=== PATIENT | female | born 1960 | race Caucasian/White ===

== ENCOUNTER → 2020-04-10 10:10 | Outpatient (BNVA) | payer OTHER, SELFPAY | PROVIDERS: PCP Family Medicine; Visit Provider Hospitalist | DX: Z76.89 Persons encountering health services in other specified circumstances (principal) ==

== ENCOUNTER 2021-03-13 14:45 | Outpatient (REF) | payer OTHER, SELFPAY ==
[2021-03-13 16:09] LABS: MANUAL DIFF FLAG NO
[2021-03-13 16:24] LABS: Basophils Percent Auto 0.3 % (0-2); Eosinophils Percent Auto 0.1 % (0-4); Imm Gran Abs Auto 0.21 X10*3/uL (0.00-0.03); Imm Gran Pct Auto 1.6 % (0.0-0.4); Lymphocytes Absolute Auto 4.6 X10*3/uL (1.2-4.9); Lymphocytes Percent Auto 34.7 % (20-40); Mean Corpuscular Hemoglobin 20.5 pg (27.0-33.0); Mean Corpuscular Volume 70.5 fL (80.0-98.0); Mean Platelet Volume 8.7 fL (9.4-12.3); Monocytes Absolute Auto 0.9 X10*3/uL (0.1-1.2); Monocytes Percent Auto 6.4 % (2-11); NRBC Pct Auto 0.5 /100WBC (0.0-0.2); Neutrophils Absolute Auto 7.6 x10*3/uL (2.0-8.3); Neutrophils Percent Auto 56.9 % (45-73); Platelet Count 311 X10*3/uL (160-400); Red Cell Distribution Width 21.5 % (11.0-16.0); White Blood Count 13.3 X10*3/uL (4.8-10.8)
[2021-03-13 16:47] LABS: Anion Gap 13 (12-20); Blood Urea Nitrogen 22 mg/dL (9-16); Calcium 8.9 mg/dL (8.4-10.2); Carbon Dioxide 22 mmol/L (22-29); Chloride 107 mmol/L (96-108); Estimated Glomerular Filt Rate > 60; Glucose Random 93 mg/dL (60-115); Potassium 4.4 mmol/L (3.3-5.1); Sodium 138 mmol/L (135-145)
[2021-03-13 17:18] LABS: Erythrocyte Sedimentation Rate 5 MM/HR (0-20)
[2021-03-14 13:51] LABS: SARS-COV-2 IgG Spike, Semi-Qnt <1.00 index (<1.00)
[2021-03-14 22:51] LABS: Immunoglobulin E 4 kU/L (<OR=114)
[2021-03-18 22:22] LABS: Immunoglobulin G Subclass 1 304 mg/dL (382-929); Immunoglobulin G Subclass 2 98 mg/dL (241-700); Immunoglobulin G Subclass 3 32 mg/dL (22-178); Immunoglobulin G Subclass 4 2.6 mg/dL (4-86); Immunoglobulin G Total 491 mg/dL (600-1540)
== END 2021-03-13 14:46 | disposition home or self-care (01) ==
LOC: HO.LAB 14:45
PROVIDERS: PCP Family Medicine; Visit Provider Hospitalist
DX: J44.9 Chronic obstructive pulmonary disease, unspecified (principal); J45.50 Severe persistent asthma, uncomplicated; J96.10 Chronic respiratory failure, unspecified whether with hypoxia or hypercapnia; D80.1 Nonfamilial hypogammaglobulinemia; H05.20 Unspecified exophthalmos; K75.4 Autoimmune hepatitis; I82.409 Acute embolism and thrombosis of unspecified deep veins of unspecified lower extremity; Z99.81 Dependence on supplemental oxygen; Z79.52 Long term (current) use of systemic steroids
CPT/HCPCS: 36415; 80048; 82784; 82785; 85025; 85652; 86769

== ENCOUNTER → 2021-07-25 15:12 | Outpatient (BNVA) | payer OTHER, SELFPAY | PROVIDERS: PCP Family Medicine; Visit Provider Hospitalist | DX: Z13.89 Encounter for screening for other disorder (principal) ==

== ENCOUNTER 2021-11-18 15:29 | Outpatient (REF) | payer OTHER, SELFPAY ==
--- NOTE | 2021-11-18 17:42 | PFT_ITS ---
FLOWS: FEV1 113% of predicted at 2.46 L. FVC 97% of predicted at 2.76 L. FEV1 to FVC ratio of 0.89. No bronchodilator response except in small to medium airways. LUNG VOLUMES: Total lung capacity 94% of predicted at 4.33 L. Residual volume 83% of predicted at 1.59 L. Slow vital capacity 109% of predicted at 2.74 L. Expiratory reserve volume 28% of predicted at 0.20 L. Diffusion capacity is moderately decreased. IMPRESSION: No obstructive or restrictive ventilatory defect. Decreased expiratory reserve volume suggests extrathoracic restriction likely secondary to abdominal obesity. Decreased diffusion capacity without prior history of smoking suggests underlying pulmonary parenchymal disease or pulmonary edema. Clinical correlation is advised. MD BIGG Rojas/MODL / [id number]
== END 2021-11-18 15:30 | disposition home or self-care (01) ==
LOC: HO.RESP 15:29
PROVIDERS: PCP Family Medicine; Visit Provider Hospitalist
DX: J45.50 Severe persistent asthma, uncomplicated (principal)
CPT/HCPCS: 94060; 94727; 94729

== ENCOUNTER 2021-12-03 16:27 | Outpatient (REF) | payer OTHER, SELFPAY ==
[2021-12-03 16:42] LABS: MANUAL DIFF FLAG NO
[2021-12-03 16:46] LABS: Basophils Absolute Auto 0.1 X10*3/uL (0.0-0.2); Basophils Percent Auto 0.4 % (0-2); Eosinophils Percent Auto 0.1 % (0-4); Hematocrit 31.7 % (37.0-47.0); Hemoglobin 9.7 g/dl (12.0-16.0); Imm Gran Abs Auto 0.35 X10*3/uL (0.00-0.03); Imm Gran Pct Auto 2.5 % (0.0-0.4); Lymphocytes Absolute Auto 4.4 X10*3/uL (1.2-4.9); Mean Corpuscular HGB Conc 30.6 g/dl (31.0-35.0); Mean Corpuscular Hemoglobin 22.7 pg (27.0-33.0); Mean Corpuscular Volume 74.2 fL (80.0-98.0); Mean Platelet Volume 8.5 fL (9.4-12.3); Monocytes Absolute Auto 1.1 X10*3/uL (0.1-1.2); Monocytes Percent Auto 7.8 % (2-11); NRBC Pct Auto 0.3 /100WBC (0.0-0.2); Neutrophils Absolute Auto 8.2 x10*3/uL (2.0-8.3); Neutrophils Percent Auto 58.2 % (45-73); Platelet Count 295 X10*3/uL (160-400); Red Blood Count 4.27 X10*6/uL (4.20-5.50); White Blood Count 14.1 X10*3/uL (4.8-10.8)
[2021-12-03 16:59] LABS: Alanine Aminotransferase 22 U/L (0-31); Albumin Level 4.2 g/dL (3.5-5.0); Alkaline Phosphatase 38 U/L (39-117); Anion Gap 16 (12-20); Aspartate Amino Transferase 15 U/L (5-31); Bilirubin Direct 0.2 mg/dL (0.0-0.5); Bilirubin Total 0.4 mg/dL (0.0-1.0); Blood Urea Nitrogen 31 mg/dL (9-16); Calcium 9.5 mg/dL (8.4-10.2); Carbon Dioxide 20 mmol/L (22-29); Chloride 106 mmol/L (96-108); Estimated Glomerular Filt Rate 51; Glucose Random 101 mg/dL (60-115); Sodium 137 mmol/L (135-145); Total Protein 6.6 g/dL (6.5-8.0)
[2021-12-03 17:23] LABS: Erythrocyte Sedimentation Rate 12 MM/HR (0-20)
[2021-12-04 13:37] LABS: SARS-COV-2 IgG Spike, Semi-Qnt 49.77 index (<1.00)
[2021-12-04 14:56] LABS: Immunoglobulin G Subclass 1 308 mg/dL (382-929); Immunoglobulin G Subclass 2 97 mg/dL (241-700); Immunoglobulin G Subclass 3 45 mg/dL (22-178); Immunoglobulin G Total 447 mg/dL (600-1540)
[2021-12-04 18:56] LABS: Immunoglobulin E 4 kU/L (<OR=114)
== END 2021-12-03 16:28 | disposition home or self-care (01) ==
LOC: HO.LAB 16:27
PROVIDERS: Visit Provider Hospitalist
DX: Z20.822 Contact with and (suspected) exposure to COVID-19 (principal); U09.9 Post COVID-19 condition, unspecified; D80.1 Nonfamilial hypogammaglobulinemia; J45.909 Unspecified asthma, uncomplicated; J96.10 Chronic respiratory failure, unspecified whether with hypoxia or hypercapnia
CPT/HCPCS: 36415; 80048; 80076; 82784; 82785; 85025; 85652; 86769

== ENCOUNTER → 2022-06-09 15:12 | Outpatient (BNVA) | payer OTHER, SELFPAY | PROVIDERS: PCP Family Medicine; Visit Provider Hospitalist | DX: J45.909 Unspecified asthma, uncomplicated (principal); J44.9 Chronic obstructive pulmonary disease, unspecified; D80.1 Nonfamilial hypogammaglobulinemia; J96.10 Chronic respiratory failure, unspecified whether with hypoxia or hypercapnia; U09.9 Post COVID-19 condition, unspecified ==

== ENCOUNTER 2023-09-03 14:41 | Outpatient (AMB) | payer OTHER, SELFPAY ==
--- NOTE | 2023-09-03 14:45 | A.OFFVIS_ITS ---
Vital Signs 09/03/23 14:47 Height 5 ft 1 in Weight 162 lb BMI 30.6 Pulse 69 Pulse Source Pulse Oximeter Pulse Oximetry (%) 96 Oxygen Delivery Method Room Air Intake Visit Reasons: COPD Pantograph Watcher Required: No Allergies azithromycin [AZITHROMYCIN] Allergy (Severe, Verified 09/03/23 14:48) N/V Cephalosporins [CEPHALOSPORINS] Allergy (Severe, Verified 09/03/23 14:48) N/V [place] And Derivatives [CITRUS] Allergy (Severe, Verified 09/03/23 14:48) GI DISSTRESS codeine [CODEINE] Allergy (Severe, Verified 09/03/23 14:48) N/V furosemide [From LASIX] Allergy (Severe, Verified 09/03/23 14:48) RESP DISTRESS lactulose [LACTULOSE] Allergy (Severe, Verified 09/03/23 14:48) GI DISTRESS Penicillins [PCN] Allergy (Severe, Verified 09/03/23 14:48) N/V topiramate [From TOPAMAX] Allergy (Severe, Verified 09/03/23 14:48) CONFUSION HPI Comments Details: The atient is a 63-year-old woman with known severe persistent asthma and significant air trapping, hypogammaglobulinemia and known autoimmune hepatitis. Her course was complicated by vertebral compression fractures resulting in cauda equina syndrome not using a walker.2This was likely precipitated by the chronic use of steroids. More recently however the patient developed worsening altered mental status with significant encephalopathy. She was also having fevers up to 102. She did undergo evaluation for meningitis which was or unremarkable except for elevated CSF protein. She also had an EEG that was found to be abnormal. Currently she she has been treated for seizures. In the meantime respiratory status is better. She has decreased the amount of medication she is taking. We did review her chest x-ray from [facility] when she was admitted demonstrating decreased lung volumes with some airspace disease. Therefore, the patient should have a repeat x-ray at this time. She has not been receiving her IgG infusions since December. At this point the patient is concerned with all the other medical issues that she is having. Her last IgE level total was okay. Although her subclass 2 was slightly decreased. She continues on the prednisone 20 mg a day and she is tolerating that well. She continues the albuterol and overall has been able to simplify her respiratory regimen. 06/23/2019. The patient is here for pulmonary follow-up visit. She has not recovering from a recurrent respiratory infection. She has had multiple respiratory infections since we last spoke. She continues on the prednisone 20 mg daily. Her liver has been stable. In the meantime we did recheck her IgG levels and it appears that she has worsening hypogammaglobulinemia with a total IgG of 561 and a significantly low subclass 2 of 116. The patient had been on IVIG infusions in there very effective for. At this time in view of the worsenin g IgG levels in the recurrent infections and her ongoing autoimmune disease the patient will be restarted on IVIG infusions. 11/26/2019 the patient is here for pulmonary follow-up visit. Overall she is doing fairly well from a respiratory status. She has not really needing nebulized therapy any longer. She rarely uses her rescue inhaler which is reassuring. She continues on the prednisone 10 mg twice a day. In addition to that she continues with the infusions that appear to be very effective beneficial for her. She is getting this monthly. She is having significant back issues and also now hip issues. She was evaluated by [facility] at [facility] demonstrating significant arthritis of her right hip. It appears that she is going to need a total hip replacement. She was also diagnosed with seizures. She was evaluated for this. It was felt that it was likely related to hypoxia which could have been due to underlying obstructive sleep apnea. In view of her elevated [place] score of 12/24, history of seizures and significant comorbidities the patient needs to have a diagnostic study for sleep apnea. Will will request a split study to be done in lab. Hopefully we can do this prior to her surgery. In the office we did up spirometry in order to perform I preoperative evaluation demonstrating normal spirometry without any evidence of obstruction or restriction. 04/10/2020 the patient is here for pulmonary follow-up visit. The patient overall has been doing relatively well from a pulmonary standpoint. However, she has had to increase to use her nebulizer because of increasing shortness of breath and chest tightness. Unfortunately her nebulizer now is broken and she needs to get a replacement. I will send a request to the local [employer] company. In the meantime she did not have her sleep study due to the COVID- 19 concerns. In addition to that she stop the IgG infusions due to the concerns of the COVID-19 infections. She will hold off for now until it is safe to do s o. When she is ready to restart therapy will check her levels to see if she requires additional infusions. She continues to have significant issues with her osteoporosis. She did undergo her hip surgery and that is been very helpful. She is having issues with her left hip and will have additional evaluation for that. She continues to require prednisone 20 mg daily for her autoimmune hepatitis. The patient does not have any other alternatives to replace the prednisone at this time. 03/13/2021 the patient is here for a pulmonary follow-up visit. The patient continues to struggle with multiple ailments. Recently she was diagnosed with exophthamos From her thyroid disease. She continues to require a wheeled walker to get around because of significant shortness of breath and also significant lower extremity weakness. Her is at her side always helping. She does have the oxygen supplementation. She uses the oxygen with activity with good effect. she continues on 20 mg of prednisone. She did try cutting down to 15 mg and she became significantly winded. She also uses the oxygen to sleep. At this point is reasonable to try to cut her down from 20 mg to 90 mg and just go slow with her taper due to the fact that she has been on chronic dose of prednisone now for many years. Also, be important to make sure that she cuts down the prednisone her liver does not inflamed again. She continues to use her nebulized therapy with good effect couple times a day at least. She has been able to exercise regularly due to her risk for falls. Apparently she did have a fall and also an injury to her lower extremity and she ended up developing a significant infection admitted to the [facility]. During that admission she did have multiple courses of antibiotics. The patient also had lower extremity Dopplers which demonstrated a DVT. The patient has been on Eliquis. It is not clear to me if she had a CT scan to rule out PE. But, she does states that she was found not to have a pulmonary emboli. The patient now is on Eliquis and is tolerating it well. Although now with her risk of falls and history of seizures she needs to be very careful. also to note the patient stopped her IgG infusions. She was having some difficulties with IV access in view of her chronic steroid use. She has been developing ongoing infections. 07/25/2021 the patient is here for a pulmonary follow-up visit. Patient is still recovering from COVID. She was not hospitalized. She did call her primary care doctor and did provide her with monoclonal antibodies. The patient does feel that the infusion improved her symptoms significantly. Although she still had some shortness of breath along with chronic cough which is nonproductive in nature. And she also complains of brain fog and fatigue. Therefore, she did not cut down on the prednisone since she did not feel well. She continues use the nebulizer. Her portable nebulizer broke. We did request a replacement portable nebulizer from the [employer]. However, he did not have 1 available. She will look to see if she can get 1 her own. The patient was not approved to start IVIG. At this point she would like to hold off anyway. She had issues in our infusion center with could not find her IVs and she was not very happy with the experience. Therefore will hold off at this point anyway. 12/03/2021 the patient is here for a pulmonary follow-up visit. Since we last spoke the patient has been developing worsening upper respiratory illness and sinusitis. She has tried multiple therapies without any significant improvement she also complained of increasing cough with chest congestion consistent with bronchitis. We did review her blood work including her IgG de monstrating significantly low IgG levels suggesting significant hypogammaglobulinemia that is likely contributing to her respiratory symptoms will go ahead and repeat the blood work to see if she has any better however, if her IgE levels are lower than restarting her IVIG therapy may be warranted. In the meantime she is working closely with ENT regarding her sinus infection and also appears to have a component of chronic mastoiditis. 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 She is still on chronic prednisone for her autoimmune hepatitis. Although she does have significant osteoporosis which is a concern. The patient also has recovered from COVID-19. She is concerned about her response to the vaccine specially with her immune deficiency. Will go ahead and recheck her COVID-19 spike protein antibody titers. 06/09/2022 the patient is here for a pulmonary follow-up visit. The patient overall is doing well. She did have a stroke back in February. 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 She was given tPA with resolution of her neurological deficits. She then did she see physical therapy with good effect. She is back to almost her baseline. Patient continues to be on prednisone taking 10 mg in the morning and some mg at nighttime. She does have significant bruising and is having issues with anemia. She is getting iron infusions at this time. The goal be to try to decrease her prednisone down to 10 mg a day. However will go slowly by decreasing only by 1 mg every 2 weeks. If at some point the patient becomes symptomatic she is to hold the dose and just follow-up at the lowest most effective dose. The patient does have also autoimmune hepatitis that she is taking the prednisone for. At this point she already likely has adrenal insufficiency and will likely need a chronic prednisone anyway. She continues use the nebulized therapy twice a day. This has been affecting beneficial. 09/03/2023 the patient is here for a pulmonary follow-up visit. She has had a very eventful year since we last spoke. She developed what appeared to be a perforated viscus and required emergency surgery. Now she has not ostomy. She had a prolonged hospitalization. Develop significant deconditioning. She did go home and she did have VNA services and plenty of care. She has been getting stronger. In the meantime she continues to have respiratory symptoms. She has been having ongoing cough [id number] severity. She responds best to the nebulized therapy. We will request imaging studies and discharge summaries from [facility] where she had been admitted. The patient has been trying to get stronger. Her hope is that she can get the reversal for the colostomy. She will be following up with a surgeon at a different institution. Her will now is partly healing. She did require a wound VAC for period of time for a slowly healing wound. In part primarily due to her coughing spells resulting in inability to heal that wound. therefore, will provide the patient with nebulized therapy in addition to cough medication in order to avoid significant coughing spells. She will continue to get stronger. the patient follow-up in 6-8 months. If she has any worsening symptoms prior to that she will call for an earlier assessment. [facility] Medical History (Updated 06/09/22 @ 21:41 by Stephan Crawford MD) CVA (cerebral vascular accident) Chronic cough [id number] syndrome Chronic respiratory failure DVT (deep venous thrombosis) Autoimmune hepatitis Hypogammaglobulinemia Asthma Surgical History (Updated 07/21/21 @ 12:13 by Tammie Molina PA-C) History of sinus surgery Family History (System 07/29/20 @ 08:54 by Meri Stearns) Other Asthma Social History (Updated 03/13/21 @ 15:03 by JANE Gilbert) Patient Tobacco Use Status: Never used Tobacco Review of Systems Const Reports body aches, Reports fatigue, Denies night sweats, Reports weakness and Reports weight loss Eyes Reports blurry vision, Reports exophthalmos, Reports change in vision, Reports irritation and Reports other visual disturbances ENT Denies change in voice, Denies lip swelling, Denies mouth pain, Reports nasal congestion, Reports nasal discharge and Denies tongue swelling Card Denies chest pain and Reports dyspnea on exertion Resp Reports cough and Reports dyspnea on exertion GI Reports as per HPI Musc Reports abnormal gait, Reports back pain, Reports arthralgias, Reports limited range of motion, Reports loss of height and Reports stiffness Neuro Denies Neuro-related abnormal movements, Reports abnormal gait and Reports weakness Psych Denies no additional complaints Endo Reports fatigue Chau/Lymph Denies easy bleeding and Denies lymphadenopathy Aller/Immun Denies lip swelling and Denies tongue swelling Physical Exam Vital Signs: Last Vital Signs Pulse 69 09/03/23 14:47 Pulse Ox 96 09/03/23 14:47 Oxygen Delivery Method Room Air 09/03/23 14:47 BMI result Body Mass Index 30.6 Assessment & Plan Assessment & Plan (1) Asthma: Code(s): J45.909 - Unspecified asthma, uncomplicated Category: Medical Qualifiers: Asthma severity: severe Asthma persistence: persistent Asthma complication type: uncomplicated Qualified Code(s): J45.50 - Severe persistent asthma, uncomplicated (2) Chronic respiratory failure: Code(s): J96.10 - Chronic respiratory failure, unspecified whether with hypoxia or hypercapnia Category: Medical (3) Hypogammaglobulinemia: Code(s): D80.1 - Nonfamilial hypogammaglobulinemia Category: Medical (4) Chronic cough: Code(s): R05.3 - Chronic cough Category: Medical Plan continue budesonide daily MICHAEL as needed continue Accolate benzonate as needed for cough F/U 8-10 months Medications: New ipratropium-albuterol 0.5 mg-3 mg(2.5 mg base)/3 mL 3 mL inhalation QID 360 mL 11RF 30 days J44.9 - Chronic obstructive pulmonary disease, unspecified budesonide 0.5 mg (2 mL) inhalation DAILY 60 mL 11RF 30 days J44.9 - Chronic obstructive pulmonary disease, unspecified Refilled benzonatate 200 mg PO BID PRN 60 caps 11RF cough 30 days Coding Level of Care Code Est Pt Level 4 (33156) Diagnoses Severe persistent asthma without complication J45.50 Asthma severity: severe Asthma persistence: persistent Asthma complication type: uncomplicated Chronic respiratory failure J96.10 Hypogammaglobulinemia D80.1 Chronic cough R05.3 Time Spent (min) 20
[2023-09-03 14:47] VITALS: PULSE 69; O2SAT 96; BMI 30.6
== END 2023-09-03 15:24 | disposition home or self-care (01) ==
PROVIDERS: PCP Family Medicine; Referring Provider Family Medicine; Visit Provider Hospitalist
DX: J45.50 Severe persistent asthma, uncomplicated (principal); J96.10 Chronic respiratory failure, unspecified whether with hypoxia or hypercapnia; D80.1 Nonfamilial hypogammaglobulinemia; R05.3 Chronic cough
CPT/HCPCS: 99214

== ENCOUNTER → 2023-09-03 14:41 | Outpatient (BNVA) | payer OTHER, SELFPAY | PROVIDERS: PCP Family Medicine; Visit Provider Hospitalist ==

== ENCOUNTER 2024-09-19 14:40 | Outpatient (AMB) | payer OTHER, SELFPAY ==
[2024-09-19 14:43] VITALS: BP 140/62; PULSE 54; O2SAT 97; BMI 34.6
--- NOTE | 2024-09-19 14:43 | A.OFFVIS_ITS ---
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 Required: No Allergies azithromycin [AZITHROMYCIN] Allergy (Severe, Verified 09/19/24 14:46) N/V Cephalosporins [CEPHALOSPORINS] Allergy (Severe, Verified 09/19/24 14:46) N/V [place] And Derivatives [CITRUS] Allergy (Severe, Verified 09/19/24 14:46) GI DISSTRESS codeine [CODEINE] Allergy (Severe, Verified 09/19/24 14:46) N/V furosemide [From LASIX] Allergy (Severe, Verified 09/19/24 14:46) RESP DISTRESS lactulose [LACTULOSE] Allergy (Severe, Verified 09/19/24 14:46) GI DISTRESS Penicillins [PCN] Allergy (Severe, Verified 09/19/24 14:46) N/V topiramate [From TOPAMAX] Allergy (Severe, Verified 09/19/24 14:46) CONFUSION HPI Comments Details: The atient is a 64-year-old woman with known severe persistent asthma and significant air trapping, hypogammaglobulinemia and known autoimmune hepatitis. Her course was complicated by vertebral compression fractures resulting in cauda equina syndrome not using a walker.2This was likely precipitated by the chronic use of steroids. More recently however the patient developed worsening altered mental status with significant encephalopathy. She was also having fevers up to 102. She did undergo evaluation for meningitis which was or unremarkable except for elevated CSF protein. She also had an EEG that was found to be abnormal. Currently she she has been treated for seizures. In the meantime respiratory status is better. She has decreased the amount of medication she is taking. We did review her chest x-ray from [facility] when she was admitted demonstrating decreased lung volumes with some airspace disease. Therefore, the patient should have a repeat x-ray at this time. She has not been receiving her IgG infusions since December. At this point the patient is concerned with all the other medical issues that she is having. Her last IgE level total was okay. Although her subclass 2 was slightly decreased. She continues on the prednisone 20 mg a day and she is tolerating that well. She continues the albuterol and overall has been able to simplify her respiratory regimen. 06/23/2019. The patient is here for pulmonary follow-up visit. She has not recovering from a recurrent respiratory infection. She has had multiple respiratory infections since we last spoke. She continues on the prednisone 20 mg daily. Her liver has been stable. In the meantime we did recheck her IgG levels and it appears that she has worsening hypogammaglobulinemia with a total IgG of 561 and a significantly low subclass 2 of 116. The patient had been on IVIG infusions in there very effective for. At this time in view of the worsening IgG levels in the recurrent infections and her ongoing autoimmune disease the patient will be restarted on IVIG infusions. 11/26/2019 the patient is here for pulmonary follow-up visit. Overall she is doing fairly well from a respiratory status. She has not really needing nebulized therapy any longer. She rarely uses her rescue inhaler which is reassuring. She continues on the prednisone 10 mg twice a day. In addition to that she continues with the infusions that appear to be very effective beneficial for her. She is getting this monthly. She is having significant back issues and also now hip issues. She was evaluated by Orthopedics at [facility] demonstrating significant arthritis of her right hip. It appears that she is going to need a total hip replacement. She was also diagnosed with seizures. She was evaluated for this. It was felt that it was likely related to hypoxia which could have been due to underlying obstructive sleep apnea. In view of her elevated [place] score of 12/24, history of seizures and significant com orbidities the patient needs to have a diagnostic study for sleep apnea. Will will request a split study to be done in lab. Hopefully we can do this prior to her surgery. In the office we did up spirometry in order to perform I preoperative evaluation demonstrating normal spirometry without any evidence of obstruction or restriction. 04/10/2020 the patient is here for pulmonary follow-up visit. The patient overall has been doing relatively well from a pulmonary standpoint. However, she has had to increase to use her nebulizer because of increasing shortness of breath and chest tightness. Unfortunately her nebulizer now is broken and she needs to get a replacement. I will send a request to the local [employer] company. In the meantime she did not have her sleep study due to the COVID-19 concerns. In addition to that she stop the IgG infusions due to the concerns of the COVID-19 infections. She will hold off for now until it is safe to do so. When she is ready to restart therapy will check her levels to see if she requires additional infusions. She continues to have significant issues with her osteoporosis. She did undergo her hip surgery and that is been very helpful. She is having issues with her left hip and will have additional evaluation for that. She continues to require prednisone 20 mg daily for her autoimmune hepatitis. The patient does not have any other alternatives to replace the prednisone at this time. 03/13/2021 the patient is here for a pulmonary follow-up visit. The patient continues to struggle with multiple ailments. Recently she was diagnosed with exophthamos From her thyroid disease. She continues to require a wheeled walker to get around because of significant shortness of breath and also significant lower extremity weakness. Her is at her side always helping. She does have the oxygen supplementation. She uses the oxygen with activity with good effect. she continues on 20 mg of prednisone. She did try cutting down to 15 mg and she became significantly winded. She also uses the oxygen to sleep. At this point is reasonable to try to cut her down from 20 mg to 90 mg and just go slow with her taper due to the fact that she has been on chronic dose of prednisone now for many years. Also, be important to make sure that she cuts down the prednisone her liver does not inflamed again. She continues to use her nebulized therapy with good effect couple times a day at least. She has been able to exercise regularly due to her risk for falls. Apparently she did have a fall and also an injury to her lower extremity and she ended up developing a significant infection admitted to the [facility]. During that admission she did have multiple courses of antibiotics. The patient also had lower extremity Dopplers which demonstrated a DVT. The patient has been on Eliquis. It is not clear to me if she had a CT scan to rule out PE. But, she does states that she was found not to have a pulmonary emboli. The patient now is on Eliquis and is tolerating it well. Although now with her risk of falls and history of seizures she needs to be very careful. also to note the patient stopped her IgG infusions. She was having some difficulties with IV access in view of her chronic steroid use. She has been developing ongoing infections. 07/25/2021 the patient is here for a pulmonary follow-up visit. Patient is still recovering from COVID. She was not hospitalized. She did call her primary care doctor and did provide her with monoclonal antibodies. The patient does feel that the infusion improved her symptoms significantly. Although she still had some shortness of breath along with chronic cough which is nonproductive in nature. And she also complains of brain fog and fatigue. Therefore, she did not cut down on the prednisone since she did not feel well. She continues use the nebulizer. Her portable nebulizer broke. We did request a replacement portable nebulizer from the [employer]. However, he did not have 1 available. She will look to see if she can get 1 her own. The patient was not approved to start IVIG. At this point she would like to hold off anyway. She had issues in our infusion center with could not find her IVs and she was not very happy with the experience. Therefore will hold off at this point anyway. 12/03/2021 the patient is here for a pulmonary follow-up visit. Since we last spoke the patient has been developing worsening upper respiratory illness and sinusitis. She has tried multiple therapies without any significant improvement she also complained of increasing cough with chest congestion consistent with bronchitis. We did review her blood work including her IgG demonstrating significantly low IgG levels suggesting significant hypogammaglobulinemia that is likely contributing to her respiratory symptoms will go ahead and repeat the blood work to see if she has any better however, if her IgE levels are lower than restarting her IVIG therapy may be warranted. In the meantime she is working closely with ENT regarding her sinus infection and also appears to have a component of chronic mastoiditis. 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 She is still on chronic prednisone for her autoimmune hepatitis. Although she does have significant osteoporosis which is a concern. The patient also has recovered from COVID-19. She is concerned about her response to the vaccine specially with her immune deficiency. Will go ahead and recheck her COVID-19 spike protein antibody titers. 06/09/2022 the patient is here for a pulmonary follow-up visit. The patient overall is doing well. She did have a stroke back in February. 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 She was given tPA with resolution of her neurological deficits. She then did she see physical therapy with good effect. She is back to almost her baseline. Patient continues to be on prednisone taking 10 mg in the morning and some mg at nighttime. She does have significant bruising and is having issues with anemia. She is getting iron infusions at this time. The goal be to try to decrease her prednisone down to 10 mg a day. However will go slowly by decreasing only by 1 mg every 2 weeks. If at some point the patient becomes symptomatic she is to hold the dose and just follow-up at the lowest most effective dose. The patient does have also autoimmune hepatitis that she is taking the prednisone for. At this point she already likely has adrenal insufficiency and will likely need a chronic prednisone anyway. She continues use the nebulized therapy twice a day. This has been affecting beneficial. 09/03/2023 the patient is here for a pulmonary follow-up visit. She has had a very eventful year since we last spoke. She developed what appeared to be a perforated viscus and required emergency surgery. Now she has not ostomy. She had a prolonged hospitalization. Develop significant deconditioning. She did go home and she did have VNA services and plenty of care. She has been getting stronger. In the meantime she continues to have respiratory symptoms. She has been having ongoing cough [id number] severity. She responds best to the nebulized therapy. We will request imaging studies and discharge summaries from [facility] where she had been admitted. The patient has been trying to get stronger. Her hope is that she can get the reversal for the colostomy. She will be following up with a surgeon at a different institution. Her will now is partly healing. She did require a wound VAC for period of time for a slowly healing wound. In part primarily due to her coughing spells resulting in inability to heal that wound. therefore, will provide the patient with nebulized therapy in addition to cough medication in order to avoid significant coughing spells. She will continue to get stronger. the patient follow-up in 6-8 months. If she has any worsening symptoms prior to that she will call for an earlier assessment. 09/19/2024 the patient is here for a pulmonary follow-up visit. She continues to struggle with her severe persistent asthma. She has been on chronic prednisone for many years. Now developing adverse effects from the chronic amount of steroids. She is already fracture 3 vertebra and 3 ribs in a short period of time. She has tried multiple therapies for her significant osteoporosis but with no avail. Unfortunately she continues to be on 14 mg of prednisone. We did talk about additional therapies to consider in order to treat her severe persistent asthma including biologic therapy. I do believe test part will be a very good option for her. 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 Chronic respiratory failure DVT (deep venous thrombosis) Autoimmune hepatitis Hypogammaglobulinemia Asthma Surgical History (Updated 07/21/21 @ 12:13 by Tammie Molina PA-C) History of sinus surgery Family History (System 07/29/20 @ 08:54 by Meri Stearns) Other Asthma Social History Patient Tobacco Use Status: Never used Tobacco Review of Systems Const Denies chills, Denies fatigue, Denies fever(s), Denies weight gain and Denies weight loss Eyes Reports blurry vision, Reports exophthalmos, Reports change in vision, Reports irritation and Reports other visual disturbances ENT Denies dizziness, Denies lip swelling and Denies tongue swelling Card Denies chest pain, Denies leg edema, Denies lightheadedness, Denies palpitations, Denies dyspnea on exertion, Denies orthopnea and Denies other Resp Denies cough and Denies dyspnea on exertion GI Denies hematochezia and Denies change in stool character Musc Denies abnormal gait, Denies muscle weakness, Denies numbness, Denies radiating pain into limb and Denies tingling Neuro Denies abnormal gait, Denies dizziness, Denies numbness and Denies tingling Psych Denies no additional complaints Endo Denies fatigue and Denies palpitations Chau/Lymph Denies easy bleeding and Denies lymphadenopathy Aller/Immun Denies lip swelling and Denies tongue swelling Physical Exam Vital Signs: Last Vital Signs Pulse 54 09/19/24 14:43 BP 140/62 H 09/19/24 14:43 Pulse Ox 97 09/19/24 14:43 Oxygen Delivery Method Room Air 09/19/24 14:43 BMI result Body Mass Index 34.6 Const General: alert Eyes Alignment and Position: position abnormal bilateral exophthalmos Conjunctivae: conjunctival abnormal right subconjunctival hemorrhage Neck Neck: Yes normal visual inspection, Yes full ROM and Yes no lymphadenopathy Chest Chest palpation & inspection: normal inspection of the chest Resp Auscultation: no wheezes and diminished lung sounds Cardio Rate: regular rate Rhythm: regular rhythm Heart sounds: S1 normal heart sound present and S2 normal heart sound present GI Palpation (GI): Soft to palpation and nontender Auscultation: normal bowel sounds General: Yes no CVA tenderness Back/Spine/Pelvis Back: no CVA tenderness Skin General skin exam: rashes and/or lesions noted Assessment & Plan Assessment & Plan (1) Asthma: Code(s): J45.909 - Unspecified asthma, uncomplicated Category: Medical Qualifiers: Asthma complication type: uncomplicated Asthma persistence: persistent Asthma severity: severe Qualified Code(s): J45.50 - Severe persistent asthma, uncomplicated (2) Chronic respiratory failure: Code(s): J96.10 - Chronic respiratory failure, unspecified whether with hypoxia or hypercapnia Category: Medical Qualifiers: Respiratory failure complication: hypoxia Qualified Code(s): J96.11 - Chronic respiratory failure with hypoxia (3) Hypogammaglobulinemia: Code(s): D80.1 - Nonfamilial hypogammaglobulinemia Category: Medical (4) Chronic cough: Code(s): R05.3 - Chronic cough Category: Medical Plan continue budesonide daily MICHAEL as needed continue Accolate start Tezspire slow wean of prednisone 14mg->10mg benzonate as needed for cough F/U 8-10 months Coding Level of Care Code Est Pt Level 4 (01869) Complex EM visit Add On G2211 Diagnoses Severe persistent asthma without complication J45.50 Asthma complication type: uncomplicated Asthma persistence: persistent Asthma severity: severe Chronic respiratory failure with hypoxia J96.11 Respiratory failure complication: hypoxia Hypogammaglobulinemia D80.1 Chronic cough R05.3 Time Spent (min) 18
--- OUTSIDE RECORDS SUMMARY | 2024-09-19 14:43 | XMS_ITS | Encounter Summary ---
Author Organization [facility] Address [address] [place] [address] Care Team Providers Care Sales And Service Specialist Name Role Phone Howie Trent MD Primary Care Provider [phone] Encounter Details Date Type Department Care Team (Late st Contact Info) Description 09/14/2024 Telephone [facility] 4th floor Cardiology Medicine [address] [place] [address] [id number] Informatics Nurse Specialist: Darien Gomez MD [address] [place] [phone] Social History Tobacco Use Types Packs/Day Years Used Date Smoking Tobacco: Former Cigarettes 0.3 4 1 085 - 2746 Smokeless Tobacco: Never Comments: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 Alcohol Use Standard Drinks/Week Comments Yes 0 (1 standard drink = 0.6 oz pur e alcohol) rarely Comments No Sex and Gender Information Value Date Recorded Sex Assigned at Female 11/03/2022 4:02 PM EDT Legal Sex Female 11:59 PM EDT Gender Identity Female 11/03/2022 4:02 PM EDT Sexual Orientation Choose not to disclose 2022 4:02 PM EDT Occupation Industry Job Start Date Job End Date disabled Not on file Not on file Not on file documented as of this encounter Miscellaneous Notes * Telephone Encounter - Jenae Palomotucker - 09/14/2024 11:36 AM EDT Miller Stoner, Pt is asking if you could give her the name of the vascular surgeon in [place] that you mention at the last office visit. Best call back [phone] Thank you documented in this encounter Plan of Treatment Upcoming Encounters Date Type Department Care Team (Late st Contact Info) Description 11/13/2024 3:30 PM EDT Follow-Up [facility] 4th floor Cardiology Medicine [address] [place] [id number] Informatics Nurse Specialist: Amy Ortega PA [address] [place] [phone] 12/26/2024 4:00 PM EDT Follow-Up [facility] Endocrinology Clinic [address] [place] [address] [phone] Informatics Nurse Specialist: Harvinder Chiang MD [address] [place] [phone] 01/01/2025 10:00 AM EDT Office Visit [facility]rology [facility] [address] [place] [phone] Jenae Cee MD [address] [place] [phone] 02/26/2025 9:00 AM EST Office Visit [facility] [address] [place] [phone] Petros Borrego PA [address] [place] [phone] 06/22/2025 4:00 PM EST Follow-Up [facility] 4th floor Cardiology Medicine [address] [place] [phone] Informatics Nurse Specialist: Darien Gomez MD [address] [place] [phone] documented as of this encounter Visit Diagnoses Not on filedocumented in this encounter Additional Health Concerns Infection Onset Date Last Indicated Resolved Time Multidrug resistant organism s ESBL Comment:ESBL E.coli 05/07/2023 05/24/2023 VRE Enterococcus 05/10/2023 09/06/2023 documented as of this encounter Care Teams Sales And Service Specialist Relationship Specialty Start Date End Date Howie Trent MD [address] [place] [id number] PCP - General Family Medicine 04/07/24 documented as of this encounter
== END 2024-09-19 15:37 | disposition home or self-care (01) ==
LOC: HO.HPS 14:40
PROVIDERS: PCP Family Medicine; Visit Provider Hospitalist
DX: J45.50 Severe persistent asthma, uncomplicated (principal); J96.11 Chronic respiratory failure with hypoxia; D80.1 Nonfamilial hypogammaglobulinemia; R05.3 Chronic cough
CPT/HCPCS: 99214